=== PATIENT | female | born 1985 | race Caucasian/White ===

== ENCOUNTER 2025-04-21 15:36 | Outpatient (CLI) | payer BC ==
--- NOTE | 2025-04-21 22:04 | RADIOLOGY REPORT ---
INDICATION: PELVIC PAIN FEMALE TECHNIQUE: Multiple real-time grayscale transabdominal sonographic images along with color and duplex Doppler of the uterus and ovaries were obtained. COMPARISON: None FINDINGS: Uterus measures 7.3 x 4.1 x 5.6 cm. Possible fibroid is noted within the uterus. Endometrium measures 9.5 mm. Small amount of fluid within endometrial canal. Right ovary measures 1.8 x 0.6 x 0.6 cm and left ovary measures 2.1 x 1.3 x 1.8 cm. Normal vascular flow is noted within bilateral ovaries. No free fluid. IMPRESSION: 1. Question small fibroid within uterus. Small free fluid within the endometrium. 2. no acute ovarian torsion at this time.
== END 2025-04-21 23:59 | disposition home or self-care (01) ==
LOC: RAD 15:36
PROVIDERS: ATTEND Nurse Practitioner
DX: R10.2 Pelvic and perineal pain (principal)
CPT/HCPCS: 76830; 76856; 93976